=== PATIENT | male | born 1960 | race African-American/Black ===

== ENCOUNTER 2016-07-08 16:32 | Emergency (ER) | payer SELFPAY ==
--- NOTE | 2016-07-08 16:40 | ER Document Report ---
ED Medical Screen (RME) - General Stated Complaint: FALL/RIB PAIN Notes: 56 yo male c/o pain to right ribs. was riding horse, horse bucked, patient hit ribs on saddle. hurts to breath. injury occurred on Wednesday.
[2016-07-08] MEDS ORDERED: HYDROCODONE/ACETAMINOPHEN 5-325 MG 6 TAB/DSPK PO PRN (18:56)
--- NOTE | 2016-07-08 18:57 | ER Document Report ---
ED General - General Chief Complaint: Rib Pain Stated Complaint: FALL/RIB PAIN Notes: Patient is a 56-year-old male with past medical history of active tobacco use who presents after he fell off a horse 5 days ago landing onto his right ribs. States that since that time he has had a dull, constant, aching pain to the lower right ribs that is worsened by movement or deep inspiration. States the pain becomes so severe that it causes him to "pee myself". He has not seen his primary care doctor for today's concerns. He's been taking Tylenol with minimal improvement of the pain. Denies any history of similar injury in the past. He continues to smoke. He denies any head or neck injury. Denies abdominal pain. Denies any additional concerns TRAVEL OUTSIDE OF THE [place] IN LAST 30 DAYS: No - Related Data Allergies/Adverse Reactions: Penicillins Allergy (Verified 07/08/16 16:37) Home Medications: Current Home Medications No Home Medications 07/08/16 [History] Past Medical History - General Information source: Patient - Social History Smoking Status: Current Every Day Smoker Chew tobacco use (# tins/day): No Frequency of alcohol use: None Drug Abuse: None Lives with: Parents Family History: Reviewed & Not Pertinent Patient has suicidal ideation: No Patient has homicidal ideation: No Renal/ Medical History: Denies: Hx Peritoneal Dialysis Past Surgical History: Reports: Hx Orthopedic Surgery - Right arm and leg Review of Systems - Review of Systems Notes: Constitutional: Negative for fever. Eyes: Negative for visual changes. ENT: Negative for facial injury Cardiovascular: Negative for chest injury. Respiratory: Positive for shortness of breath. Gastrointestinal: Negative for abdominal injury. Genitourinary: Negative for genital injury Musculoskeletal: Chest wall pain Skin: Negative for laceration/abrasions. Neurological: Negative for head injury. Physical Exam - Vital signs Vitals: Temp Pulse Resp BP Pulse Ox 99.5 F 107 H 20 115/65 92 07/08/16 16:40 07/08/16 16:40 07/08/16 16:40 07/08/16 16:40 07/08/16 16:40 Interpretation: Tachycardic Notes: PHYSICAL EXAMINATION: GENERAL: Well-appearing, no acute distress. HEAD: Atraumatic, normocephalic. EYES: Pupils equal round and reactive to light, extraocular movements intact, sclera anicteric, conjunctiva are normal. ENT: nares patent, no oral pharyngeal trauma. No hemotympanum, no Peralta's sign , no raccoon eyes. NECK: No midline cervical spine tenderness. Patient able to move their head to 45 bilaterally without any discomfort. LUNGS: Breath sounds clear to auscultation bilaterally and equal. No wheezes rales or rhonchi. HEART: Regular rate and rhythm without murmurs. CHEST WALL: Pain on palpation of the right lower chest wall ABDOMEN: Soft, nontender, normoactive bowel sounds. No guarding, no rebound. No seatbelt sign. EXTREMITIES: Normal range of motion, no pitting or edema. No long bone deformities. BACK: No midline spinal tenderness, step-offs, or deformities. NEUROLOGICAL: Face symmetric. Tongue protrudes midline. Extraocular motions intact. Pupils are 2 mm and equally reactive. Normal speech, normal gait. 5 out of 5 strength in both the distal and proximal upper and lower extremities bilaterally. Sensation is grossly intact throughout. Finger to nose testing normal. Pronator drift normal. PSYCH: Normal mood, normal affect. SKIN: Warm, Dry, normal turgor, no rashes or lesions noted. Course - Re-evaluation Re-evalutation: 07/08/16 18:52 Patient presents with 5 days of right-sided rib pain after falling off a horse. Patient does have palpable pain to the lower rib segments without any palpable deformities. His vitals at time of my assessment are all within normal limits without tachycardia, hypotension, tachypnea or hypoxemia. He was noted to be mildly hypoxemic in triage and I suspect this is from decreased inspiratory effort as well as his [id number] smoking history. Patient has no focal abdominal or flank tenderness to suggest an acute intra-abdominal injury. He has no abdominal bruising. Moreover, his injury occurred 5 days ago and if he had had a liver or spleen laceration I would expect progressive worsening of his medical picture, tachycardia, hypotension and focal abdominal pain none of with which patient presents. Therefore I will not obtain a CT of his abdomen and pelvis or CT of the chest. A chest x-ray obtained in triage does not demonstrates any pulmonary contusions or acute rib fractures. Of note, patient made a comment to the nurse that he was having difficulty controlling his urine. I clarified this with the patient, and he states that it is more that when he coughs or has a bout of severe pain in his ribs it makes him almost "pee himself". However he denies any bowel or bladder retention. He notes that these episodes only occur when he is in severe pain. He denies any back pain, back injury, and his neurologic exam is completely unremarkable with full strength, motor sensory exam the bilateral lower extremities. He has 2+ reflexes both in the ankles and knees and no evidence of clonus to suggest a spinal cord injury or toward further imaging of the back. Will manage patient conservatively with analgesia and incentive spirometry.At this time will discharge with return precautions and follow-up recommendations. Verbal discharge instructions given a the bedside and opportunity for questions given. Medication warnings reviewed. Patient is in agreement with this plan and has verbalized understanding of return precautions and the need for primary care follow-up in the next 24-72 hours. - Vital Signs Vital signs: Temp Pulse Resp BP Pulse Ox 99.5 F 92 20 128/64 H 95 07/08/16 20:00 07/08/16 20:00 07/08/16 20:00 07/08/16 20:00 07/08/16 20:00 - Diagnostic Test Radiology reviewed: Image reviewed, Reports reviewed Radiology results interpreted by me: 07/09/16 03:51 Chest x-ray: No acute fractures or pulmonary contusions Discharge - Discharge Clinical Impression: Rib pain on right side Condition: Good Disposition: HOME, SELF-CARE Additional Instructions: Your chest wall pain is due to bruising of your ribs. This pain can last for up to 6 weeks. It is very important that you continue to take purposeful deep breaths. For your pain: Continue to take ibuprofen 600 mg every 6 hours or Tylenol 1000 mg every 6 hours. Apply local lidocaine to the area per bottle instructions. There is a product sold [id number] called "Aspercreme with lidocaine" that you can use for this purpose. Please follow-up with her primary care doctor in the next 2-3 days. Return to the emergency department immediately if you develop worsening shortness of breath, increased pain, begin coughing blood, pass out, or have any other symptoms that are worrisome to you.
[2016-07-08] MEDS ORDERED: LIDOCAINE 5% (700 MG) TRANSDERMAL ADH..PATCH TP ONE (19:33)
[2016-07-08] MEDS ORDERED: IBUPROFEN 800 MG TABLET PO ONE (19:33)
[2016-07-08 20:04] VITALS: BP 128/64
== END 2016-07-08 20:00 | disposition home or self-care (01) ==
LOC: ER 16:32
DX: R07.81 Pleurodynia (principal); W19.XXXA Unspecified fall, initial encounter; F17.210 Nicotine dependence, cigarettes, uncomplicated
CPT/HCPCS: 99284